=== PATIENT | male | born 1945 | race Caucasian/White ===

== ENCOUNTER 2017-11-10 05:09 | Inpatient (IN) | payer OTHER ==
[~2017-11-10] VITALS: Ht 180.3 cm; Wt 98.5 kg
[2017-11-10 05:42] LABS: HEMOGLOBIN 16.2 G/DL (12.5-16.6); MCH 31.8 PG (29.0-34.0); MCHC 33.1 G/DL (30.0-36.0); MCV 96.3 FL (86-99); PLATELET COUNT 191 K/uL (156-360); RBC DIS.WIDTH-CV 13.8 % (11.8-14.6); RBC DIS.WIDTH-SD 49.1 % (39-53); RED BLOOD COUNT 5.09 M/uL (4.00-5.50); WHITE BLOOD COUNT 8.1 K/uL (4.1-10.2)
[2017-11-10 05:48] LABS: CHLORIDE 103 mEq/L (99-109); GLUCOSE 166 mg/dL (70-99); POTASSIUM 4.4 mEq/L (3.7-5.4); SODIUM 137 mEq/L (136-147)
[2017-11-10 05:52] LABS: CREATININE 1.2 mg/dL (0.6-1.3); GFR ESTIMATE (CALCULATED) > 59 mL/min/ (58.99-99999)
[2017-11-10 05:53] LABS: UREA NITROGEN (BUN) 28 mg/dL (9-23)
[2017-11-10 06:11] LABS: TROP-I INTERPRETATION NEGATIVE; TROPONIN-I 0.02 ng/mL (0.0-0.30)
[2017-11-10 07:04] LABS: INTER. NORMALIZED RATIO 2.2
[2017-11-10 07:07] LABS: PTT 33.2 SEC (25-37)
[2017-11-10 10:36] LABS: APPEARANCE CLOUDY ((CLEAR)); COLOR YELLOW ((YELLOW))
[2017-11-10 10:37] LABS: BILIRUBIN NEGATIVE; BLOOD LARGE; GLUCOSE (STRIP) NEGATIVE; KETONES NEGATIVE; LEUKOCYTES NEGATIVE; NITRITE NEGATIVE; PH, URINE 6.5 (5-8); PROTEIN (STRIP) 100; UROBILINOGEN 0.2 MG/DL (0.2-1.0)
[2017-11-10 10:57] LABS: RED BLOOD CELLS TNTC /HPF (0-5)
[2017-11-10 10:58] LABS: AMORPHOUS URATES CRYSTALS 2+; BACTERIA NONE SEEN /HPF; EPITHELIAL CELLS RARE /HPF; MUCUS NONE SEEN /LPF; UCUL ADDED? YES; WHITE BLOOD CELLS NONE SEEN /HPF (0-5)
[2017-11-10] MEDS ORDERED: SIMVASTATIN20 MG PO ×2 (11:04→11:24)
[2017-11-10] MEDS ORDERED: METOPROLOL SUCC50 MG PO (11:05)
[2017-11-10] MEDS ORDERED: LISINOPRIL10 MG PO ×2 (11:06→11:23)
[2017-11-10] MEDS ORDERED: FINASTERIDE5 MG PO ×2 (11:06→11:21)
[2017-11-10] MEDS ORDERED: PROAIR RESPICL90 MCG AEROSOL (11:20)
[2017-11-10] MEDS ORDERED: TOPROL XL50 MG PO (11:22)
[2017-11-10] MEDS ORDERED: PREDNISONE50 MG PO (11:26)
[2017-11-10] MEDS ORDERED: COUMADIN2.5 MG PO (11:27)
[2017-11-10] MEDS ORDERED: CEFUROXIME500 MG PO (11:28)
[2017-11-10] MEDS ORDERED: KRILL OIL 3501 EACH PO (11:29)
[2017-11-10] MEDS ORDERED: PHENERGAN-CODE120 ML PO (11:30)
[2017-11-10] MEDS ORDERED: VITAMIN D2000 UNI1 PO (11:31)
[2017-11-10] MEDS ORDERED: ASPIR 8181 M1 PO (11:32)
[2017-11-10 12:28] LABS: TROP-I INTERPRETATION NEGATIVE; TROPONIN-I < 0.01 ng/mL (0.0-0.30)
[2017-11-10 15:35] VITALS: BP 136/71
[2017-11-10 17:39] LABS: TROP-I INTERPRETATION NEGATIVE; TROPONIN-I 0.01 ng/mL (0.0-0.30)
[2017-11-10 19:00] VITALS: BP 96/54
[2017-11-10 23:00] VITALS: BP 111/65
[2017-11-11 03:30] VITALS: BP 112/66
[2017-11-11 05:14] LABS: HEMATOCRIT 43.8 % (38.0-50.0); HEMOGLOBIN 14.3 G/DL (12.5-16.6); MCH 30.7 PG (29.0-34.0); MCHC 32.6 G/DL (30.0-36.0); PLATELET COUNT 193 K/uL (156-360); RBC DIS.WIDTH-CV 13.5 % (11.8-14.6); RBC DIS.WIDTH-SD 47.2 % (39-53); RED BLOOD COUNT 4.66 M/uL (4.00-5.50); WHITE BLOOD COUNT 7.9 K/uL (4.1-10.2)
[2017-11-11 05:58] LABS: CHLORIDE 98 MEQ/L (99-109); GFR ESTIMATE (CALCULATED) > 59 mL/min/ (58.99-99999); GLUCOSE 153 mg/dL (70-99); POTASSIUM 4.3 MEQ/L (3.7-5.4); SODIUM 140 MEQ/L (136-147); UREA NITROGEN (BUN) 26 mg/dL (9-23)
[2017-11-11 08:00] VITALS: BP 113/65
[2017-11-11 11:51] LABS: INTER. NORMALIZED RATIO 2.1
[2017-11-11 12:26] VITALS: BP 110/72
[2017-11-11] MEDS ORDERED: PROAIR HFA8.5 GM IH (14:57)
[2017-11-11 16:42] VITALS: BP 95/54
[2017-11-11 20:00] VITALS: BP 121/61
[2017-11-11 23:00] VITALS: BP 114/61
[2017-11-12 04:45] VITALS: BP 111/58
[2017-11-12 05:22] LABS: HEMATOCRIT 45.7 % (38.0-50.0); HEMOGLOBIN 15.3 G/DL (12.5-16.6); MCH 31.5 PG (29.0-34.0); MCHC 33.5 G/DL (30.0-36.0); PLATELET COUNT 202 K/uL (156-360); RBC DIS.WIDTH-CV 13.5 % (11.8-14.6); RED BLOOD COUNT 4.86 M/uL (4.00-5.50); WHITE BLOOD COUNT 9.4 K/uL (4.1-10.2)
[2017-11-12 05:29] LABS: INTER. NORMALIZED RATIO 2.4
[2017-11-12 05:47] LABS: CHLORIDE 96 MEQ/L (99-109); GFR ESTIMATE (CALCULATED) > 59 mL/min/ (58.99-99999); GLUCOSE 140 mg/dL (70-99); MAGNESIUM 2.2 mg/dl (1.3-2.7); POTASSIUM 4.8 MEQ/L (3.7-5.4); SODIUM 137 MEQ/L (136-147); UREA NITROGEN (BUN) 33 mg/dL (9-23)
[2017-11-12 08:30] VITALS: BP 110/65
[2017-11-12 11:35] VITALS: BP 124/69
[2017-11-12 16:18] VITALS: BP 121/73
[2017-11-12 19:20] VITALS: BP 129/84
[2017-11-13 00:10] VITALS: BP 139/53
[2017-11-13 04:00] VITALS: BP 127/65
[2017-11-13 06:06] LABS: CHLORIDE 96 MEQ/L (99-109); GFR ESTIMATE (CALCULATED) > 59 mL/min/ (58.99-99999); GLUCOSE 136 mg/dL (70-99); MAGNESIUM 2.3 mg/dl (1.3-2.7); POTASSIUM 4.4 MEQ/L (3.7-5.4); SODIUM 139 MEQ/L (136-147); UREA NITROGEN (BUN) 29 mg/dL (9-23)
[2017-11-13 06:24] LABS: INTER. NORMALIZED RATIO 2.5
[2017-11-13 07:20] VITALS: BP 123/80
[2017-11-13 07:51] LABS: HEMATOCRIT 48.2 % (38.0-50.0); HEMOGLOBIN 15.5 G/DL (12.5-16.6); MCH 30.4 PG (29.0-34.0); MCHC 32.2 G/DL (30.0-36.0); MCV 94.5 FL (86-99); PLATELET COUNT 244 K/uL (156-360); RBC DIS.WIDTH-CV 13.3 % (11.8-14.6); RBC DIS.WIDTH-SD 47.3 % (39-53); WHITE BLOOD COUNT 11.8 K/uL (4.1-10.2)
[2017-11-13 08:14] LABS: ABS NEUTROPHIL COUNT 9.7; ATYPICAL LYMPHOCYTE 2.6 %; EOSINOPHIL ABS CT 0; MONOCYTES 7.1 % (0-9.0); SEG.NEUTROPHILS 82.3 % (46.0-76.0); SMUDGE CELLS 5.3
[2017-11-13] MEDS ORDERED: CEFUROXIME500 MG PO (10:21)
[2017-11-13] MEDS ORDERED: TAMSULOSIN HCL0.4 MG PO (10:26)
[2017-11-13] MEDS ORDERED: DUONEB 2.5-0.5 M3 ML AEROSOL (10:27)
[2017-11-13] MEDS ORDERED: PREDNISONE20 MG PO (10:30)
[2017-11-13] MEDS ORDERED: DIGOXIN250 MCG PO (10:31)
[2017-11-13] MEDS ORDERED: ADVAIR 250/501 DISK IH (10:31)
[2017-11-13] MEDS ORDERED: SPIRIVA1 INHALATI IH (10:32)
[2017-11-13] MEDS ORDERED: LASIX40 MG PO (10:59)
== END 2017-11-13 15:45 | disposition home health service (06) | DRG 291 ==
LOC: EME 05:09 → 4EAST 07:56 → EDOF 07:56 → CANRESERV 08:01 → ENRESERV 08:01 → EDOF 08:13 → ENRESERV 13:52 → 4EAST 14:55
PROVIDERS: Emergency Medicine; Internal Medicine; Physician Assistant; Physician Assistant Medical
DX: I50.23 Acute on chronic systolic (congestive) heart failure (principal); J96.01 Acute respiratory failure with hypoxia; I48.2 Chronic atrial fibrillation; I48.4 Atypical atrial flutter; J44.1 Chronic obstructive pulmonary disease with (acute) exacerbation; I25.810 Atherosclerosis of coronary artery bypass graft(s) without angina pectoris; N39.41 Urge incontinence; I25.5 Ischemic cardiomyopathy; I25.118 Atherosclerotic heart disease of native coronary artery with other forms of angina pectoris; E78.5 Hyperlipidemia, unspecified; I11.0 Hypertensive heart disease with heart failure; R31.0 Gross hematuria; F17.210 Nicotine dependence, cigarettes, uncomplicated; I73.9 Peripheral vascular disease, unspecified; N40.1 Benign prostatic hyperplasia with lower urinary tract symptoms; N21.0 Calculus in bladder; N28.1 Cyst of kidney, acquired; Z79.01 Long term (current) use of anticoagulants; B95.2 Enterococcus as the cause of diseases classified elsewhere; I25.2 Old myocardial infarction; Z95.5 Presence of coronary angioplasty implant and graft; Z87.442 Personal history of urinary calculi
CPT/HCPCS: 71045; 71046; 80048; 81003; 83735; 83880; 84484; 85025; 85027; 85610; 85730; 87040; 87077; 87086; 87186; 87502; 93005; 94640; 94640 76; 94667; 94668; 94760; 94799; 99202; 99281; 99284; J0456; J0696; J1100; J1160; J1940; J2920; J7512

== ENCOUNTER 2017-11-24 13:43 | Emergency (ER) | payer OTHER ==
[~2017-11-24] VITALS: Ht 180.3 cm; Wt 100.2 kg
[~2017-11-24 13:43] MED LIST: ADVAIR 250/501 DISK IH; ASPIR 8181 M1 PO; CEFUROXIME500 MG PO; COUMADIN2.5 MG PO; DIGOXIN250 MCG PO; DUONEB 2.5-0.5 M3 ML AEROSOL; FINASTERIDE5 MG PO; KRILL OIL 3501 EACH PO; LASIX40 MG PO; LISINOPRIL10 MG PO; METOPROLOL SUCC50 MG PO; PHENERGAN-CODE120 ML PO; PREDNISONE20 MG PO; PREDNISONE50 MG PO; PROAIR HFA8.5 GM IH; PROAIR RESPICL90 MCG AEROSOL; SIMVASTATIN20 MG PO; SPIRIVA1 INHALATI IH; TAMSULOSIN HCL0.4 MG PO; TOPROL XL50 MG PO; VITAMIN D2000 UNI1 PO
[2017-11-24 16:12] LABS: CHLORIDE 99 mEq/L (99-109); POTASSIUM 4.9 mEq/L (3.7-5.4); SODIUM 136 mEq/L (136-147)
[2017-11-24 16:12] LABS: BASOPHIL (%) 0.1 % (0-1); EOSINOPHIL (%) 0.1 % (0-5); HEMATOCRIT 47.9 % (38.0-50.0); HEMOGLOBIN 16.5 G/DL (12.5-16.6); IMMATURE GRANULOCYTE (%) 1.1 % (0.0-0.7); LYMPHOCYTE (%) 4.5 % (15-42); LYMPHOCYTE COUNT 0.5 K/uL (1.0-2.8); MCHC 34.4 G/DL (30.0-36.0); MCV 92.8 FL (86-99); MONOCYTE COUNT 0.8 K/uL (0-0.8); NEUTROPHIL (%) 87.2 % (45-76); NEUTROPHIL COUNT 10.4 K/uL (1.8-6.4); PLATELET COUNT 176 K/uL (156-360); RBC DIS.WIDTH-CV 13.2 % (11.8-14.6); RED BLOOD COUNT 5.16 M/uL (4.00-5.50); WHITE BLOOD COUNT 11.9 K/uL (4.1-10.2)
[2017-11-24 16:13] LABS: GLUCOSE 121 mg/dL (70-99)
[2017-11-24 16:17] LABS: CREATININE 1.4 mg/dL (0.6-1.3); GFR ESTIMATE (CALCULATED) 53 mL/min/ (58.99-99999)
[2017-11-24 16:18] LABS: UREA NITROGEN (BUN) 36 mg/dL (9-23)
[2017-11-24 16:23] LABS: TROP-I INTERPRETATION NEGATIVE; TROPONIN-I 0.02 ng/mL (0.0-0.30)
[2017-11-24 17:35] VITALS: BP 151/71
== END 2017-11-24 17:37 | disposition home or self-care (01) ==
LOC: EME 13:43
PROVIDERS: Emergency Medicine
DX: I95.1 Orthostatic hypotension (principal); I48.92 Unspecified atrial flutter; I11.0 Hypertensive heart disease with heart failure; I50.9 Heart failure, unspecified; E78.5 Hyperlipidemia, unspecified; Z79.01 Long term (current) use of anticoagulants; Z87.891 Personal history of nicotine dependence
CPT/HCPCS: 71046; 80048; 83880; 84484; 85025; 93005; 99281; 99285

== ENCOUNTER 2018-01-19 13:18 | Day surgery (SDC) | payer OTHER ==
[~2018-01-19] VITALS: Ht 180.3 cm; Wt 113.0 kg
[~2018-01-19 13:18] MED LIST changes: +FUROSEMIDE20 MG PO; +METOPROLOL TART25 MG PO; +NITROSTAT0.4 MG SL; +TYLENOL EXTRA500 MG PO
[2018-01-19 17:45] VITALS: BP 138/78
[2018-01-19 20:11] VITALS: BP 118/56
[2018-01-19 23:45] VITALS: BP 95/70
[2018-01-20 05:06] VITALS: BP 122/70
[2018-01-20 05:53] LABS: INTER. NORMALIZED RATIO 1.8
[2018-01-20 08:54] VITALS: BP 107/59
[2018-01-20 11:23] VITALS: BP 106/71
== END 2018-01-20 13:50 | disposition home or self-care (01) ==
LOC: CATH 13:18 → 2SOUTH 15:30 → 4EAST 15:30 → ENRESERV 15:53 → 4EAST 17:50
PROVIDERS: Internal Medicine Cardiovascular Disease
DX: I42.0 Dilated cardiomyopathy (principal); I25.5 Ischemic cardiomyopathy; I11.0 Hypertensive heart disease with heart failure; I50.9 Heart failure, unspecified; I25.2 Old myocardial infarction; I25.10 Atherosclerotic heart disease of native coronary artery without angina pectoris; Z95.1 Presence of aortocoronary bypass graft; Z95.5 Presence of coronary angioplasty implant and graft; Z85.828 Personal history of other malignant neoplasm of skin; M25.519 Pain in unspecified shoulder; Z88.5 Allergy status to narcotic agent; Z88.8 Allergy status to other drugs, medicaments and biological substances; Z79.01 Long term (current) use of anticoagulants; Z79.82 Long term (current) use of aspirin
CPT/HCPCS: 71045; 85610; 93005; C1894; C1899; G0378; J0690; J1200; J2250; J3010; S0020